=== PATIENT | female | born 1970 | race African-American/Black ===

== ENCOUNTER 2019-07-30 20:40 | Observation (INO) | payer OTHER, SELFPAY ==
--- OUTSIDE RECORDS SUMMARY | 2019-07-30 20:42 | XMS REPORT ---
:1970 Author Organization [employer]Clinical[employer] Care Team Providers Name Role Phone Morgan Mccord Provider Role Unavailable Allergies No Known Allergies Problems Problem Type Condition Code Onset Dates Condition Status Assessment Poor hygiene R46.0 Active Assessment Pelvic pain R10.2 Active Assessment Uterine leiomyoma, unspecified D25.9 Active location Problem Encounter for gynecological Z01.419 Active examination without abnormal finding Problem Uterine leiomyoma, unspecified D25.9 Active location Problem Pelvic pain R10.2 Active Assessment Encounter for gynecological Z01.419 Active examination without abnormal finding Assessment Screening mammogram, encounter for Z12.31 Active Problem Screening mammogram, encounter for Z12.31 Active Problem Poor hygiene R46.0 Active Medications No Known Medications Results No Known Results Summary Purpose eClinicalWorks Submission
--- OUTSIDE RECORDS SUMMARY | 2019-07-30 20:42 | XMS REPORT ---
:1970 Author Organization [employer] Care Team Providers Name Role Phone Morgan Mccord Provider Role Unavailable Allergies No Known Allergies Problems Problem Type Condition Code Onset Dates Condition Status Problem Encounter for gynecological Z01.419 Active examination without abnormal finding Problem Uterine leiomyoma, unspecified D25.9 Active location Problem Pelvic pain R10.2 Active Assessment Encounter for contraceptive Z30.9 Active management, unspecified type Problem Screening mammogram, encounter for Z12.31 Active Problem Poor hygiene R46.0 Active Medications No Known Medications Results No Known Results Summary Purpose eClinicalWorks Submission
--- OUTSIDE RECORDS SUMMARY | 2019-07-30 20:42 | XMS REPORT ---
:1970 Author Organization [employer] Care Team Providers Name Role Phone Morgan Mccord Provider Role Unavailable Allergies No Known Allergies Problems Problem Type Condition Code Onset Dates Condition Status Problem Encounter for gynecological Z01.419 Active examination without abnormal finding Problem Uterine leiomyoma, unspecified D25.9 Active location Problem Pelvic pain R10.2 Active Problem Screening mammogram, encounter for Z12.31 Active Problem Poor hygiene R46.0 Active Medications No Known Medications Results No Known Results Summary Purpose eClinicalWorks Submission
[2019-07-30 21:25] LABS: Absolute Lymphocytes (CBC) 2.3 K/uL (0.7-4.9); Basophils % 0.6 % (0-1.3); Hematocrit 37.2 % (36.0-45.0); MPV 8.6 fL (7.6-11.3); RBC Red Blood Cell Count 4.78 M/uL (3.86-4.86)
[2019-07-30 21:37] LABS: Protime INR 1.07
[2019-07-30 21:46] LABS: ALT/SGPT 78 U/L (12-78); AST/SGOT 82 U/L (15-37); Albumin 3.8 g/dL (3.4-5.0); Alkaline Phosphatase 104 U/L (45-117); BUN Blood Urea Nitrogen 9 mg/dL (7-18); Bicarbonate 26 mmol/L (21-32); Bilirubin Direct 0.2 mg/dL (0-0.2); Bilirubin Total 0.5 mg/dL (0.2-1.0); Glucose Level 108 mg/dL (74-106); Magnesium 1.5 mg/dL (1.8-2.4); NT PRO-BNP 16 pg/mL (<125); Potassium 3.3 mmol/L (3.5-5.1); Protein, Total 8.6 g/dL (6.4-8.2); Sodium Level 140 mmol/L (136-145); Troponin (Emerg Dept Use Only) < 0.02 ng/mL (0.0-0.045)
--- NOTE | 2019-07-30 21:47 | RAD REPORT ---
EXAM DESCRIPTION: RAD - Chest Single View - 07/30/2019 9:22 pm CLINICAL HISTORY: CHEST PAIN Chest pain. COMPARISON: CHEST SINGLE VIEW dated 07/02/2013; CHEST SINGLE VIEW dated 07/01/2013; CHEST PA AND LAT 2 VIEW dated 09/06/2012 FINDINGS: Portable technique limits examination quality. The lungs are grossly clear. The heart is normal in size. No displaced fractures. IMPRESSION: No acute intrathoracic process suspected.
--- NOTE | 2019-07-30 23:36 | EDPHYS ---
Physician Documentation [facility] Name: Radha Swift Age: 48 yrs Sex: Female : 1970 Arrival Date: 07/30/2019 Time: 20:45 Bed 25 Private MD: ED Physician Madan Salas HPI: 07/31 03:13 This 48 yrs old Black Female presents to ER via Wheelchair with complaints of Chest tw4 Pain. 03:13 The patient or guardian reports chest pain that is located primarily in the anterior tw4 chest wall. 03:13 Onset: just prior to arrival. The pain does not radiate. Associated signs and symptoms: tw4 Pertinent positives: palpitations, Pertinent negatives: abdominal pain, cough, diaphoresis, dizziness, headache, lower extremity pain, lower extremity swelling, lightheadedness, nausea. The chest pain is described as a heaviness, a pressure. Duration: The patient or guardian reports a single episode. Modifying factors: The symptoms are alleviated by nothing. the symptoms are aggravated by nothing. Severity of pain: At its worst the pain was moderate in the emergency department the pain is unchanged. Historical: - Allergies: 07/30 20:54 No Known Allergies; ca1 - Home Meds: 20:54 None [Active]; ca1 - PMHx: 20:54 None; ca1 - PSHx: 20:54 ; ca1 - Immunization history:: Adult Immunizations up to date, Flu vaccine is not up to date. - Social history:: Smoking status: Patient/guardian denies using tobacco. - Ebola Screening: : Patient negative for fever greater than or equal to 101.5 degrees Fahrenheit, and additional compatible Ebola Virus Disease symptoms Patient denies exposure to infectious person Patient denies travel to an Ebola-affected area in the 21 days before illness onset No symptoms or risks identified at this time. ROS: 07/31 03:13 Constitutional: Negative for fever, chills, and weight loss, Eyes: Negative for injury, tw4 pain, redness, and discharge. Respiratory: Negative for shortness of breath, cough, wheezing, and pleuritic chest pain, Abdomen/GI: Negative for abdominal pain, nausea, vomiting, diarrhea, and constipation, Back: Negative for injury and pain, MS/Extremity: Negative for injury and deformity, Skin: Negative for injury, rash, and discoloration, Neuro: Negative for headache, weakness, numbness, tingling, and seizure. Cardiovascular: Positive for chest pain, Negative for edema, orthopnea, palpitations. Exam: 03:13 Constitutional: This is a well developed, well nourished patient who is awake, alert, tw4 and in no acute distress. Head/Face: Normocephalic, atraumatic. 03:13 Chest/axilla: Normal chest wall appearance and motion. Nontender with no deformity. No lesions are appreciated. Cardiovascular: Regular rate and rhythm with a normal S1 and S2. No gallops, murmurs, or rubs. Normal PMI, no JVD. No pulse deficits. Respiratory: Lungs have equal breath sounds bilaterally, clear to auscultation and percussion. No rales, rhonchi or wheezes noted. No increased work of breathing, no retractions or nasal flaring. Abdomen/GI: Soft, non-tender, with normal bowel sounds. No distension or tympany. No guarding or rebound. No evidence of tenderness throughout. Back: No spinal tenderness. No costovertebral tenderness. Full range of motion. MS/ Extremity: Pulses equal, no cyanosis. Neurovascular intact. Full, normal range of motion. Neuro: Awake and alert, GCS 15, oriented to person, place, time, and situation. Cranial nerves II-XII grossly intact. Motor strength 5/5 in all extremities. Sensory grossly intact. Cerebellar exam normal. Normal gait. Vital Signs: 07/30 20:54 BP 140 / 92; Pulse 84; Resp 18 S; Temp 98.5(O); Pulse Ox 100% on R/A; Weight 72.57 kg ca1 (R); Height 5 ft. 5 in. (165.10 cm) (R); Pain 2/10; 21:30 BP 144 / 89; Pulse 81; Resp 18 S; Pulse Ox 100% on R/A; cc3 22:45 BP 121 / 82; Pulse 77; Resp 18 S; Pulse Ox 99% on R/A; cc3 23:00 BP 127 / 75; Pulse 91; Resp 18 S; Pulse Ox 99% on R/A; cc3 07/31 00:30 BP 127 / 68; Pulse 73; Resp 17 S; Pulse Ox 97% on R/A; cc3 01:35 BP 131 / 80; Pulse 73; Resp 16 S; Pulse Ox 99% on R/A; cc3 07/30 20:54 Body Mass Index 26.63 (72.57 kg, 165.10 cm) ca1 MDM: 07/30 20:51 Patient medically screened. tw4 07/31 03:13 Differential diagnosis: acute pericarditis, Cholelithiasis costochondritis, pulmonary tw4 embolus, stable angina, thoracic aortic disection, unstable angina. HEART Score: History: Moderately Suspicious (1), ECG: Non specific repolarization disturbance / LBTB / PM (1), Age: > 45 and < 65 years (1), Risk Factors: 1 or 2 risk factors (1), Troponin: < or = 1 x Normal Limit (0), Total Score = 4. Data reviewed: vital signs, nurses notes. Data interpreted: Pulse oximetry: Interpretation: normal. Counseling: I had a detailed discussion with the patient and/or guardian regarding: the historical points, exam findings, and any diagnostic results supporting the discharge/admit diagnosis, lab results, radiology results. Special discussion: I discussed with the patient/guardian in detail that at this point there is no indication for admission to the hospital. It is understood, however, that if the symptoms persist or worsen the patient needs to return immediately for re-evaluation. 07/30 20:54 Order name: Basic Metabolic Panel; Complete Time: 23:31 tw4 07/30 23:31 Interpretation: Normal except: K 3.3; CL 108; GLUC 108. tw4 07/30 20:54 Order name: CBC with Diff; Complete Time: 23:31 tw4 07/30 23:31 Interpretation: Normal except: HGB 11.8; MCV 77.9; MCH 24.6; MCHC 31.6; RDW 20.0. tw4 07/30 20:54 Order name: LFT's; Complete Time: 23:31 tw4 07/30 23:31 Interpretation: Normal except: AST 82; TP 8.6; GLOB 4.8; A/G 0.8. tw4 07/30 20:54 Order name: Magnesium; Complete Time: 23:31 tw4 07/30 23:31 Interpretation: Normal except: MG 1.5. tw4 07/30 20:54 Order name: NT PRO-BNP; Complete Time: 23:31 tw4 12/02 23:31 Interpretation: Normal except: NT PRO-BNP 16. tw4 07/30 20:54 Order name: PT-INR; Complete Time: 23:31 tw4 07/30 23:31 Interpretation: Normal except: PT 12.6. tw4 07/30 20:54 Order name: Troponin (emerg Dept Use Only); Complete Time: 23:31 tw4 07/30 23:32 Interpretation: Within normal limits: TROPED < 0.02. tw4 07/30 20:54 Order name: XRAY Chest (1 view); Complete Time: 23:31 tw4 07/30 23:33 Interpretation: No acute disease. tw4 07/30 23:42 Order name: CT Chest For PE Angio tw4 07/31 01:04 Order name: Lipid Profile EDSD 07/31 01:06 Order name: Echo with Doppler EDSD 07/31 01:06 Order name: Lipid Profile EDSD 07/31 01:06 Order name: Troponin I EDSD 07/30 20:54 Order name: EKG; Complete Time: 20:55 tw4 07/30 20:54 Order name: Cardiac monitoring; Complete Time: 21:20 tw4 07/30 20:54 Order name: EKG - Nurse/Tech; Complete Time: 21:20 tw4 07/30 20:54 Order name: IV Saline Lock; Complete Time: 21:20 tw4 07/30 20:54 Order name: Labs collected and sent; Complete Time: 21:20 tw4 07/30 20:54 Order name: O2 Per Protocol; Complete Time: 21:20 tw4 07/30 20:54 Order name: O2 Sat Monitoring; Complete Time: 21:20 tw4 07/31 01:06 Order name: CONS Physician Consult EDSD 07/31 01:06 Order name: Heart Healthy EDSD 07/31 01:06 Order name: EKG Electrocardiogram EDSD 07/31 01:06 Order name: EKG Electrocardiogram EDSD EC:22 Rate is 81 beats/min. Rhythm is regular. QRS [place] is Normal. [place] interval is normal. QRS tw4 interval is normal. QT interval is normal. No Q waves. T waves are Normal. No ST changes noted. Clinical impression: Normal ECG. Interpreted by me. Reviewed by me. Administered Medications: 00:45 Drug: Magnesium 400 mg Route: PO; cc3 :00 Follow up: Response: No adverse reaction cc3 Disposition: 07/30/19 23:36 Hospitalization ordered by Merlin Vera for Inpatient Admission. Preliminary diagnosis is Chest pain, unspecified. - Bed requested for Telemetry/MedSurg (Inpatient). - Status is Inpatient Admission. aa5 - Condition is Stable. - Problem is new. - Symptoms have improved. UTI on Admission? No Signatures: Dispatcher [employer] EDDixie Menjivar, RAZIA RN aa5 Ladonna Hope RN RN Madan Salas MD MD tw4 Ly Lan cc3 Fior Barajas RN RN ca1 Corrections: (The following items were deleted from the chart) 07/30 23:53 23:36 Hospitalization Ordered by Merlin Vera MD for Inpatient Admission. Preliminary cg diagnosis is Chest pain, unspecified. Bed requested for Telemetry/MedSurg (Inpatient). Status is Inpatient Admission. Condition is Stable. Problem is new. Symptoms have improved. UTI on Admission? No. tw4 07/31 05:24 07/30 23:53 07/30/2019 23:36 Hospitalization Ordered by Merlin Vera MD for Inpatient cg Admission. Preliminary diagnosis is Chest pain, unspecified. Bed requested for [facility] ER HOLD. Status is Inpatient Admission. Condition is Stable. Problem is new. Symptoms have improved. UTI on Admission? No. cg 07/31 08:06 05:24 07/30/2019 23:36 Hospitalization Ordered by Merlin Vera MD for Inpatient aa5 Admission. Preliminary diagnosis is Chest pain, unspecified. Bed requested for Telemetry/MedSurg (Inpatient). Status is Inpatient Admission. Condition is Stable. Problem is new. Symptoms have improved. UTI on Admission? No. cg
--- NOTE | 2019-07-30 23:36 | ER ---
Nurse's Notes [facility] Name: Radha Swift Age: 48 yrs Sex: Female : 1970 Arrival Date: 07/30/2019 Time: 20:45 Bed 25 Private MD: Diagnosis: Chest pain, unspecified Presentation: 07/30 20:52 Presenting complaint: Patient states: A few minutes ago my heart felt like it was ca1 pounding and racing really really fast. Reports nausea, SOB and feeling heavy on the chest. Denies vomiting, dizziness. Transition of care: patient was not received from another setting of care. Onset of symptoms was July 30, 2019. Risk Assessment: Do you want to hurt yourself or someone else? Patient reports no desire to harm self or others. Initial Sepsis Screen: Does the patient meet any 2 criteria? No. Patient's initial sepsis screen is negative. Does the patient have a suspected source of infection? No. Patient's initial sepsis screen is negative. Care prior to arrival: None. 20:52 Method Of Arrival: Wheelchair ca1 20:52 Acuity: TASHA 3 ca1 Historical: - Allergies: 20:54 No Known Allergies; ca1 - Home Meds: 20:54 None [Active]; ca1 - PMHx: 20:54 None; ca1 - PSHx: 20:54 ; ca1 - Immunization history:: Adult Immunizations up to date, Flu vaccine is not up to date. - Social history:: Smoking status: Patient/guardian denies using tobacco. - Ebola Screening: : Patient negative for fever greater than or equal to 101.5 degrees Fahrenheit, and additional compatible Ebola Virus Disease symptoms Patient denies exposure to infectious person Patient denies travel to an Ebola-affected area in the 21 days before illness onset No symptoms or risks identified at this time. Screenin:20 Abuse screen: Denies threats or abuse. Denies injuries from another. Nutritional cc3 screening: No deficits noted. Tuberculosis screening: No symptoms or risk factors identified. Fall Risk Ambulatory Aid- None/Bed Rest/Nurse Assist (0 pts). Gait- Normal/Bed Rest/Wheelchair (0 pts) Mental Status- Oriented to own ability (0 pts). Assessment: 21:20 General: Appears in no apparent distress. comfortable, Behavior is calm, cooperative, cc3 appropriate for age. Pain: Complains of pain in chest Pain does not radiate. Quality of pain is described as heavy, Pain began 1 hour ago. Neuro: Level of Consciousness is awake, alert, obeys commands, Oriented to person, place, time, situation, Appropriate for age. Cardiovascular: Heart tones S1 S2 present Capillary refill < 3 seconds in bilateral fingers Patient's skin is warm and dry. Respiratory: Airway is patent Respiratory effort is even, unlabored, Respiratory pattern is regular, symmetrical, Breath sounds are clear bilaterally. GI: Abdomen is round. : No signs and/or symptoms were reported regarding the genitourinary system. EENT: No signs and/or symptoms were reported regarding the EENT system. Derm: Skin is intact, is healthy with good turgor, Skin is normal, black. Musculoskeletal: Circulation, motion, and sensation intact. Range of motion: intact in all extremities. 22:18 Reassessment: Patient appears in no apparent distress at this time. Patient and/or cc3 family updated on plan of care and expected duration. Pain level reassessed. Patient is alert, oriented x 3, equal unlabored respirations, skin warm/dry/pink. 23:25 Reassessment: Patient appears in no apparent distress at this time. Patient and/or cc3 family updated on plan of care and expected duration. Pain level reassessed. Patient is alert, oriented x 3, equal unlabored respirations, skin warm/dry/pink. 07/31 00:12 Reassessment: Patient appears in no apparent distress at this time. Patient and/or cc3 family updated on plan of care and expected duration. Pain level reassessed. Patient is alert, oriented x 3, equal unlabored respirations, skin warm/dry/pink. 01:30 Reassessment: Patient appears in no apparent distress at this time. Patient and/or cc3 family updated on plan of care and expected duration. Pain level reassessed. Patient is alert, oriented x 3, equal unlabored respirations, skin warm/dry/pink. Patient is ER Hold, charting continued in [facility]. Vital Signs: 07/30 20:54 BP 140 / 92; Pulse 84; Resp 18 S; Temp 98.5(O); Pulse Ox 100% on R/A; Weight 72.57 kg ca1 (R); Height 5 ft. 5 in. (165.10 cm) (R); Pain 2/10; 21:30 BP 144 / 89; Pulse 81; Resp 18 S; Pulse Ox 100% on R/A; cc3 22:45 BP 121 / 82; Pulse 77; Resp 18 S; Pulse Ox 99% on R/A; cc3 23:00 BP 127 / 75; Pulse 91; Resp 18 S; Pulse Ox 99% on R/A; cc3 07/31 00:30 BP 127 / 68; Pulse 73; Resp 17 S; Pulse Ox 97% on R/A; cc3 01:35 BP 131 / 80; Pulse 73; Resp 16 S; Pulse Ox 99% on R/A; cc3 07/30 20:54 Body Mass Index 26.63 (72.57 kg, 165.10 cm) ca1 ED Course: 07/30 20:45 Patient arrived in ED. cl3 20:51 Madan Salas MD is Attending Physician. tw4 20:52 Arm band placed on right wrist. EKG completed in triage. Results shown to MD. ca1 20:54 Triage completed. ca1 21:15 Inserted saline lock: 20 gauge in right hand, using aseptic technique. Blood collected. cc3 21:20 Patient has correct armband on for positive identification. Placed in gown. Bed in low cc3 position. Call light in reach. Side rails up X2. equipment monitor phototypesetting on. Pulse ox on. NIBP on. 21:20 Patient maintains SpO2 saturation greater than 95% on room air. cc3 21:21 Ly Lan is Primary Nurse. cc3 21:22 XRAY Chest (1 view) In Process Unspecified. EDMS 23:35 Merlin Vera MD is Hospitalizing Provider. tw4 07/31 00:06 Radiology exam delayed due to IV insertion attempt and/or patient not having kw1 appropriate IV at this time. 00:20 Inserted saline lock: 22 gauge in left antecubital area, using aseptic technique. cc3 inserted by behavioral technician. 00:54 CT Chest For PE Angio In Process Unspecified. EDMS 01:30 No provider procedures requiring assistance completed. Patient admitted, IV remains in cc3 place. Administered Medications: 00:45 Drug: Magnesium 400 mg Route: PO; cc3 01:00 Follow up: Response: No adverse reaction cc3 Outcome: 07/30 23:36 Decision to Hospitalize by Provider. tw4 07/31 01:30 Admitted to ER Hold. Please see [facility] for further documentation. cc3 Condition: stable Instructed on the need for admit, Demonstrated understanding of instructions. 08:00 Admitted to Tele accompanied by tech, via stretcher, with chart, Report called to ayo Garcia RN 08:00 Condition: stable aaElaine 08:06 Patient left the ED. aa5 Signatures: Dispatcher [employer] Dixie Green, RAZIA RN aa5 Celia Collins kw1 Madan Salas MD MD tw4 Ly Lan cc3 Fior Barajas RN RN ca1 Edson Knight cl3
[2019-07-31] MEDS ORDERED: MAGNESIUM OXIDE 400 MG TAB ONE (00:51)
[2019-07-31] MEDS ORDERED: ACETAMINOPHEN 500 MG TAB PO PRN (01:00)
[2019-07-31 04:54] VITALS: O2SAT 97
[2019-07-31] MEDS: METOPROLOL TAR 50 MG TAB PO SCH ×4 (06:00→20:22)
[2019-07-31] MEDS ORDERED: METOPROLOL TAR 25 MG TAB ONE (06:09)
[2019-07-31 06:11] LABS: HDL Cholesterol 69 mg/dL (40-60); LDL Cholesterol, Calculated 62 (<130); Troponin I < 0.02 ng/mL (0.0-0.045)
[2019-07-31] MEDS ORDERED: INFLUENZA VACCINE (for 3y+) 0.5 ML DOSE IMVAC ONE (08:00)
--- NOTE | 2019-07-31 08:01 | EKG ---
Test Date: 2019-07-30 Test Time: 20:47:54 Adult Education Manager: RR MEASUREMENT RESULTS: Intervals: Rate: 81 CT: 142 QRSD: 84 QT: 390 QTc: 453 [place]: P: 65 CT: 142 QRS: 4 T: 53 INTERPRETIVE STATEMENTS: Normal sinus rhythm with sinus arrhythmia Normal ECG Compared to ECG 07/01/2013 21:06:46 T-wave abnormality no longer present Possible ischemia no longer present Electronically Signed On 07-31-19 08:00:59 DUST MIXER by Geoffrey Mobley
[2019-07-31] MEDS: ASPIRIN EC 81 MG TAB PO SCH (09:31)
[2019-07-31] MEDS: ENOXAPARIN 40 MG/0.4 ML SQ SCH (09:31)
[2019-07-31 10:05] VITALS: BMI 30.7
--- NOTE | 2019-07-31 10:32 | P.HP ---
Certification for Inpatient Patient admitted to: Observation With expected LOS: <2 Midnights Patient will require the following post-hospital care: None Practitioner: I am a practitioner with admitting privileges, knowledge of patient current condition, hospital course, and medical plan of care. Services: Services provided to patient in accordance with Admission requirements found in Title 42 Section 412.3 of the Code of Federal Regulations Patient History Date of Service: 07/31/19 Reason for admission: CHEST PAIN RULE OUT ACUTE CORONARY SYNDROME History of Present Illness: PATIENT IS A 48-YEAR-OLD FEMALE CAME TO THE HOSPITAL CHEST DISCOMFORT. PATIENT 'S PAIN WAS MAINLY IN THE STERNAL REGION. SHE SAYS SHE HAS BEEN FEELING OF ON AND OFF FOR THE LAST FEW DAYS. IT GOT PROGRESSIVELY WORSE SO SHE CAME INTO THE ER. SHE DENIES A FAMILY HISTORY. SHE HAD A STRESS TEST 2 YEARS AGO WHICH WAS NEGATIVE. SHE DOES NOT SMOKE. SHE DOES NOT HAVE HYPERTENSION OR DIABETES. SHE HAS NEVER BEEN TOLD SHE HAS DYSLIPIDEMIA. SHE WAS ADMITTED TO THE HOSPITAL FOR FURTHER TREATMENT. Allergies No Known Allergies Allergy (Verified 06/21/17 23:47) Home Medications: NK [No Home Meds] 07/31/19 - Past Medical/Surgical History Diabetic: No -: pneumonia -: x3 - Family History Father Medical History: Lung disease Mother Medical History: Cancer - Social History Smoking Status: Never smoker Alcohol use: No CD- Drugs: No Caffeine use: No Place of Residence: Home Review of Systems 10-point ROS is otherwise unremarkable Physical Examination - Vital Signs Temperature: 97.4 F Blood Pressure: 142/80 Pulse: 66 Respirations: 16 Pulse Ox (%): 100 - Physical Exam General: Alert, In no apparent distress, Oriented x3 HEENT: Atraumatic, PERRLA, Mucous membr. moist/pink, EOMI, Sclerae nonicteric Neck: Supple, 2+ carotid pulse no bruit, No LAD, Without JVD or thyroid abnormality Respiratory: Clear to auscultation bilaterally, Normal air movement Cardiovascular: Regular rate/rhythm, Normal S1 S2, No murmurs Gastrointestinal: Normal bowel sounds, Soft and benign, Non-distended, No tenderness Musculoskeletal: No tenderness Integumentary: No rashes Neurological: Normal gait, Normal speech, Normal strength at 5/5 x4 extr, Normal tone, Sensation intact, Cranial nerves 3-12 intact, Normal affect Lymphatics: No axilla or inguinal lymphadenopathy - Studies Laboratory Data (last 24 hrs) 07/30/19 21:15: PT 12.6 H, INR 1.07 07/30/19 21:15: WBC 6.0, Hgb 11.8 L, Hct 37.2, Plt Count 242 07/30/19 21:15: Sodium 140, Potassium 3.3 L, BUN 9, Creatinine 0.72, Glucose 108 H, Magnesium 1.5 L, Total Bilirubin 0.5, AST 82 H, ALT 78, Alkaline Phosphatase 104 Assessment & Plan - Problems (Diagnosis) (1) Chest pain, rule out acute myocardial infarction Current Visit: Yes Status: Acute - Plan 1. SERIAL TROPONINS AND EKG 2. CARDIOLOGY CONSULTATION 3. ECHOCARDIOGRAM AND INPATIENT STRESS TEST MAY BE NEEDED AGAIN ALTHOUGH PATIENT HAD IT 2 YEARS AGO AWAITING CARDIOLOGY RECOMMENDATION(PENDING CARDIOLOGY EVALUATION) 4. ANTI-PLATELET THERAPY, ANTI COAGULATION, BETA-ERIN, STATIN, AND O2 NEEDED 5. IV MORPHINE FOR PAIN 6. NITRO P.R.N. Discharge Plan: Home Plan to discharge in: 24 Hours - Advance Directives Does patient have a Living Will: No Does patient have a Durable POA for Healthcare: No - Code Status/Comfort Care Code Status Assessed: Yes Code Status: Full Code Critical Care: No Time Spent Managing PTS Care (In Minutes): 40
--- NOTE | 2019-07-31 10:37 | CON ---
History Of Present Illness: Mrs. Swift came to the hospital because her heart was racing and she f elt dizzy. She was driving. She has had many episodes like this, may have been 2 or 3 times a month , usually lasts 2 minutes or so and then go away. She has never sought medical attention for them un til last night when the episode scared her. It made her feel dizzy for the first time and it lasted longer than usual. It had resolved by the time she reached the emergency room. She was in sinus rhy thm since being in the hospital. EKGs are normal. CT angio of the chest is normal. Chest x-ray is normal. She thinks she had her first episode like this at least several years ago, maybe longer. Th e patient has a history of a section. She has uterine fibroids. No history of diabetes, hy pertension, stroke, myocardial infarction, vascular disease. No history of cardiac arrhythmia except by symptoms. No allergies. Physical Examination: Vital Signs: Blood pressure 121/82, pulse 77, O2 saturation 99% on room air. HEENT: Normal. Lungs: Clear. Cardiac: Normal. Abdomen: Soft Extremities: Normal. Laboratory Data: Her lab tests looked normal including a troponin, although she is mildly anemic wit h microcytosis and I suspect she has iron deficiency anemia that has not been tested for as of yet. The blood sugar was 108, creatinine 0.72, troponins normal. Total cholesterol 146, HDL 69. Impression: The patient probably has paroxysmal atrial fibrillation, although we have not recorded i t and it is not a diagnosis. It is a suspicion. Need to monitor the patient and if we do not see an ything over the next 24 hours, she should be discharged and have an outpatient event monitor. She sh ould also have an echocardiogram, but the most likely diagnosis is paroxysmal atrial fibrillation, now in sinus rhythm. MASOUD/SHA Voice ID: [id number] Report ID: [id number]
--- NOTE | 2019-07-31 10:46 | RAD REPORT ---
EXAM DESCRIPTION: CT CHEST ANGIOGRAPHY WITH IV CONTRAST CLINICAL HISTORY: CHEST PAIN COMPARISON: CT chest June 23, 2017 TECHNIQUE: Multiple helical axial tomographic images were obtained of the chest following administra tion of intravenous contrast per angiographic protocol. MIP reformatted images were obtained. This exam was performed according to our departmental dose-optimization program, which includes autom ated exposure control, adjustment of the mA and/or kV according to patient size and/or use of iterati ve reconstruction technique. FINDINGS: Exam mildly limited by motion artifact. Thyroid gland: unremarkable. Axilla: unremarkable. Pulmonary arteries: Pulmonary arteries appear patent. No evidence of pulmonary embolism. Main pulmona ry artery appears mildly prominent. Aorta: No evidence of aortic dissection or aneurysm. Mediastinum: Unremarkable. No adenopathy. Heart: Heart is normal in size. Lungs/airways: No consolidation. Airways are patent. Pleural spaces: No significant pleural effusion. No pneumothorax. Osseous: Unremarkable. Soft tissues: Unremarkable. Visualized abdomen: Unremarkable. IMPRESSION: No acute intrathoracic abnormality within the limits of mild motion artifact. Electronically signed by: Scar Ferrari MD 07/31/2019 1:56 AM SCIENCE WRITER Due to temporary technical issues with the PACS/Fluency reporting system, reports are being signed by the in house radiologist as a courtesy to ensure prompt reporting. The interpreting radiologist is f ully responsible for the content of the report.
[2019-07-31] MEDS: ALPRAZOLAM 0.25 MG TABLET PO PRN (13:50)
[2019-07-31] MEDS: MORPHINE 4 MG/ML SYR IV PRN (16:41)
[2019-08-01] MEDS: ALPRAZOLAM 0.25 MG TABLET PO PRN (05:00)
[2019-08-01 07:44] LABS: Urine Appearance CLEAR; Urine Bilirubin NEGATIVE (NEG); Urine Blood TRACE (NEG); Urine Color YELLOW; Urine Glucose NEGATIVE (NEG); Urine Protein NEGATIVE (NEG); Urine Urobilinogen 0.2 mg/dL (0.2-1.0)
--- NOTE | 2019-08-01 08:11 | ECHO ---
HEIGHT: 5 ft 5 in WEIGHT: 184 lb 12.8 oz DATE OF STUDY: 07/31/[address]: Merlin Vera MD 2-DIMENSIONAL: YES M.MODE: YES DOPPLER: YES COLOR FLOW: YES TDS: NO PORTABLE: NO DEFINITY: NO BUBBLE STUDY: NO DIAGNOSIS: CHEST PAIN CARDIAC HISTORY: CATHERIZATION: NO SURGERY: NO PROSTHETIC VALVE: NO PACEMAKER: NO MEASUREMENTS (cm) DIASTOLIC (NORMALS) SYSTOLIC (NORMALS) IVSd 1.3 (0.6-1.2) LA Diam 3.3 (1.9-4.0) LVEF 61% LVIDd 3.6 (3.5-5.7) LVIDs 2.5 (2.0-3.5) %FS 32% LVPWd 1.0 (0.6-1.2) Ao Diam 2.4 (2.0-3.7) 2 DIMENSIONAL ASSESSMENT: RIGHT ATRIUM: NORMAL LEFT ATRIUM: NORMAL RIGHT VENTRICLE: NORMAL LEFT VENTRICLE: NORMAL TRICUSPID VALVE: NORMAL MITRAL VALVE: NORMAL PULMONIC VALVE: NORMAL AORTIC VALVE: NORMAL PERICARDIAL EFFUSION: NONE AORTIC ROOT: NORMAL LEFT VENTRICULAR WALL MOTION: NORMAL DOPPLER/COLOR FLOW: MILD TRICUSPID REGURGITATION. NORMAL RIGHT VENTRICULAR SYSTOLIC PRESSURE. COMMENTS: NORMAL 2D ECHOCARDIOGRAM. MILD TRICUSPID REGURGITATION. TECHNOLOGIST: Tanesha HAMMOND
[2019-08-01 08:18] LABS: Urine Bacteria <20 /HPF (<20); Urine Culture Reflex Order REFLEXED; Urine RBC <5 /HPF (NONE SEEN)
[2019-08-01 08:19] LABS: Urine Mucus SLIGHT /HPF (NONE SEEN)
[2019-08-01] MEDS: METOPROLOL TAR 50 MG TAB PO SCH (09:00)
[2019-08-01] MEDS: ASPIRIN EC 81 MG TAB PO SCH (09:00)
[2019-08-01] MEDS: ENOXAPARIN 40 MG/0.4 ML SQ SCH (09:00)
--- NOTE | 2019-08-01 11:00 | PN ---
Mrs. Swift has had no arrhythmia since being in the hospital. I think she should wear an event mon itor for a month and come see me as an outpatient. If she is discharged, she can go to my office and get the event monitor placed or we can put it on here before she is discharged, but I think she is r christi to be discharged. No need for further hospitalization. ALDA Voice ID: [id number] Report ID: [id number]
--- NOTE | 2019-08-01 12:13 | EKG ---
Test Date: 2019-08-01 Test Time: 09:09:37 Ammunition Storekeeper: DONI MEASUREMENT RESULTS: Intervals: Rate: 72 GA: 140 QRSD: 86 QT: 404 QTc: 442 [place]: P: 55 GA: 140 QRS: -17 T: 42 INTERPRETIVE STATEMENTS: Normal sinus rhythm Nonspecific T wave abnormality Abnormal ECG Compared to ECG 07/30/2019 20:47:54 T-wave abnormality now present Sinus arrhythmia no longer present Electronically Signed On 08-01-19 12:12:21 SWIMMING POOL INSTALLER by Geoffrey Mobley
[2019-08-01 12:46] VITALS: BP 120/65; TEMP 97.6
[2019-08-01] MEDS: MORPHINE 4 MG/ML SYR IV PRN (13:57)
--- NOTE | 2019-08-01 14:54 | P.DS ---
Discharge Date: 08/01/19 Disposition: ROUTINE DISCHARGE Discharge Condition: GOOD Reason for Admission: CHEST PAIN RULE OUT ACUTE CORONARY SYNDROME - Problems (1) Chest pain, rule out acute myocardial infarction Current Visit: Yes Status: Acute Brief History of Present Illness: PATIENT IS A 48-YEAR-OLD FEMALE CAME TO THE HOSPITAL CHEST DISCOMFORT. PATIENT 'S PAIN WAS MAINLY IN THE STERNAL REGION. SHE SAYS SHE HAS BEEN FEELING OF ON AND OFF FOR THE LAST FEW DAYS. IT GOT PROGRESSIVELY WORSE SO SHE CAME INTO THE ER. SHE DENIES A FAMILY HISTORY. SHE HAD A STRESS TEST 2 YEARS AGO WHICH WAS NEGATIVE. SHE DOES NOT SMOKE. SHE DOES NOT HAVE HYPERTENSION OR DIABETES. SHE HAS NEVER BEEN TOLD SHE HAS DYSLIPIDEMIA. SHE WAS ADMITTED TO THE HOSPITAL FOR FURTHER TREATMENT. Hospital Course: Patient was ruled out for acute coronary syndrome. Patient's troponins were negative. Patient was seen by Dr. Mobley and he recommended event monitor at discharge. Patient be discharged with outpatient follow-up with Cardiology. Vital Signs/Physical Exam: Temp Pulse Resp BP Pulse Ox 97.6 F 82 18 120/65 98 08/01/19 12:00 08/01/19 12:00 08/01/19 12:00 08/01/19 12:00 08/01/19 12:00 General: Alert, In no apparent distress, Oriented x3 Laboratory Data at Discharge: WBC 6.0 K/uL (4.3-10.9) 07/30/19 21:15 Hgb 11.8 g/dL (12.0-15.0) L 07/30/19 21:15 Hct 37.2 % (36.0-45.0) 07/30/19 21:15 Plt Count 242 K/uL (152-406) 07/30/19 21:15 PT 12.6 SECONDS (9.5-12.5) H 07/30/19 21:15 INR 1.07 07/30/19 21:15 Sodium 140 mmol/L (136-145) 07/30/19 21:15 Potassium 3.3 mmol/L (3.5-5.1) L 07/30/19 21:15 BUN 9 mg/dL (7-18) 07/30/19 21:15 Creatinine 0.72 mg/dL (0.55-1.3) 07/30/19 21:15 Glucose 108 mg/dL (74-106) H 07/30/19 21:15 Magnesium 1.5 mg/dL (1.8-2.4) L 07/30/19 21:15 Total Bilirubin 0.5 mg/dL (0.2-1.0) 07/30/19 21:15 AST 82 U/L (15-37) H 07/30/19 21:15 ALT 78 U/L (12-78) 07/30/19 21:15 Alkaline Phosphatase 104 U/L (45-117) 07/30/19 21:15 Troponin I < 0.02 ng/mL (0.0-0.045) 08/01/19 05:48 Triglycerides 77 mg/dL (<150) 07/31/19 05:30 Cholesterol 146 mg/dL (<200) 07/31/19 05:30 HDL Cholesterol 69 mg/dL (40-60) H 07/31/19 05:30 Cholesterol/HDL Ratio 2.12 07/31/19 05:30 Home Medications: Metoprolol Tartrate [Lopressor*] 25 mg PO BID #60 tab 08/01/19 New Medications: Metoprolol Tartrate [Lopressor*] 25 mg PO BID #60 tab Patient Discharge Instructions: OK TO DC IV AND DC HOME. FOLLOW-UP WITH PRIMARY CARE PROVIDER IN 1-2 WEEKS. FOLLOW-UP WITH CARDIOLOGY IN 1-2 WEEKS. RETURN TO THE ER IF symptoms worsen. CALL or TEXT DR. JUNIOR AT [phone] IF ANY QUESTIONS REGARDING HOSPITAL STAY. PLEASE CALL THE FLOOR AT [phone] IF ANY MEDICATION OR NURSING QUESTIONS. Diet: Regular Activity: Fall precautions Time spent managing pt's care (in minutes): 25
--- NOTE | 2019-09-03 12:55 | CEFINAL ---
END OF SERVICE SUMMARY REPORT DIAGNOSIS: Possible atrial fibrillation, Palpitations ORDERING DR: Geoffrey Mobley MD TECHNOLOGIST: Whitney Kiser MONITORING PERIOD: 08/01/2019 08/30/2019 TOTAL MONITORED DAYS: 30 LOWEST HEART RATE: 70 BPM ATRIAL FIBRILLATION: No HIGHEST HEART RATE: 160 BPM PAUSES: No AVERAGE HEART RATE: 124 BMP LONGEST PAUSE: N/A AUTO TRIGGERED EVENTS TIME DATE HR RHYTHM 1025 2052 2303 2310 0738 2058 0412 0847 08/01/2019 08/06/2019 08/07/2019 08/07/2019 08/08/2019 08/09/2019 08/11/2019 08/26/2019 70 120 160 160 150 150 150 110 Sinus Rhythm Sinus Tachycardia Sinus Tachycardia Sinus Tachycardia Sinus Tachycardia Sinus Tachycardia Sinus Tachycardia Sinus Tachycardia, Sinus Rhythm MANUAL EVENTS TIME DATE HR RHYTHM SYMPTOMS 1026 1046 08/01/2019 08/01/2019 80 90 Sinus Rhythm Sinus Rhythm No symptoms Other IMPRESSIONS AND FINDINGS 30 day of Event Monitor ECG recording shows sinus rhythm and sinus tachycardia. There were no pauses, no atrial fibrillation, no ventricular tachycardia and no supraventricular tachycardia. Heart rate 60-160 beats per minute.
== END 2019-08-01 17:36 | disposition home or self-care (01) ==
LOC: ER 20:40 → ERHOLD 07-31 01:00 → 4TH 07-31 07:21
PROVIDERS: ADMIT Hospitalist; ATTEND Hospitalist
DX: R07.9 Chest pain, unspecified (principal)
CPT/HCPCS: 36415; 71045; 71275; 80048; 80061; 80076; 81001; 83735; 83880; 84484; 85025; 85610; 87086; 87088; 93005; 93270; 93306; 99285; G0378; J1650; Q9967